=== PATIENT | female | born 2000 | race Caucasian/White ===

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

== ENCOUNTER 2023-09-02 21:49 | Inpatient (IN) ==
[2023-09-02 22:29] LABS: Appearance Urine Clear (Clear); Bilirubin Urine Negative (Negative); Blood Urine Negative (Negative); Color Urine Yellow; Glucose Urine UA Negative (Negative); Ketones Urine Trace (Negative); Leukocyte Esterase Urine Negative (Negative); Nitrite Urine Negative (Negative); Protein Urine Negative (Negative); Specific Gravity Urine 1.022 (1.000-1.030); Urobilinogen Urine Negative (Negative)
[2023-09-02 22:43] LABS: Basophils # (auto) 0.04 K/uL (0.00-0.20); Basophils % (auto) 0.5 %; Eosinophils # (auto) 0.13 K/uL (0.00-0.50); Eosinophils % (auto) 1.6 %; Hematocrit (blood only) 46.6 % (37.0-47.0); Hemoglobin 15.7 g/dl (12.0-16.0); Immature Granulocytes # (auto) 0.03 K/uL (0.01-0.20); Immature Granulocytes % (auto) 0.4 %; Lymphocytes # (auto) 2.48 K/uL (1.20-3.40); Mean Corpuscular Hemoglobin 31.8 pg (25.0-34.0); Mean Corpuscular Hgb Conc 33.7 g/dL (32.0-36.0); Mean Corpuscular Volume 94.3 fL (80.0-100.0); Mean Platelet Volume 10.4 fL (9.4-12.4); Monocytes # (auto) 0.72 K/uL (0.11-0.59); Monocytes % (auto) 8.7 %; Neutrophils # (auto) 4.87 K/uL (1.40-6.50); Neutrophils % (auto) 58.8 %; Platelet Count 215 K/uL (130-400); RDW Coefficient of Variation 12.8 % (11.5-14.5); RDW Standard Deviation 43.8 fL (36.4-46.3); Red Blood Count 4.94 M/uL (4.20-5.40); White Blood Count 8.27 K/ul (4.8-10.8)
[2023-09-02 22:58] LABS: Alanine Aminotransferase 9 U/L (7-52); Albumin Globulin Ratio 1.5 (0.9-2); Albumin Level 4.5 gm/dl (3.4-5.0); Alkaline Phosphatase 56 U/L (34-104); Anion Gap 6 (3-11); Aspartate Aminotransferase 16 U/L (13-39); BUN Creatinine Ratio 14.8 (10-20); Bilirubin,Total 0.4 mg/dl (0.2-1.0); Blood Urea Nitrogen 12 mg/dl (6-23); Calcium 9.7 mg/dl (8.6-10.3); Carbon Dioxide 26 mmol/L (21-32); Chloride 107 mmol/L (98-107); Est GFR (African American) 119.5 ml/min; Est GFR (Non-African American) 103.1 ml/min; Glucose 118 mg/dl (70-99(Fasting)); Potassium 3.7 mmol/L (3.5-5.1); Sodium 139 mmol/L (136-145); Total Protein 7.5 gm/dl (6.0-8.3)
[2023-09-02 23:02] LABS: Pregnancy Test, Urine Negative (Negative)
[2023-09-02 23:08] LABS: Acetaminophen < 3 ug/ml (10-30); Salicylate < 3.0 mg/dl (3.0-30)
[2023-09-02 23:13] LABS: Thyroid Stimulating Hormone 5.259 uIu/ml (0.300-4.500)
[2023-09-02 23:16] LABS: Amphetamines+Metham, Urine Neg (Neg); Barbiturates, Urine Neg (Neg); Benzodiazepine, Urine Neg (Neg); Cocaine, Urine Neg (Neg); Fentanyl, Urine Neg (Neg); MDMA (Ecstacy), Urine Neg (Neg); Marijuana, Urine Neg (Neg); Methadone, Urine Neg (Neg); Opiate, Urine Neg (Neg); Phencyclidine, Urine Neg (Neg)
--- NOTE | 2023-09-02 23:58 | Emergency Department Note ---
Impression & Plan Depression, Suicidal ideation ED Provider Note HISTORY OF PRESENT ILLNESS: Patient is a 23-year-old female presenting with suicidal ideation. States that she been feeling very depressed over the last few weeks. She states that she has been having recurrent thoughts of wanting to end her life. Reports numerous plans, including taking medication and stepping out in front of traffic. She denies any previous suicide attempts. She had an inpatient admission to [facility] in high school. She is not currently on any medications. Reports she has been having issues with her significant other. She denies any homicidal ideation. Denies any auditory visual hallucinations. She denies any physical complaints, such as chest pain or shortness of breath. She does report that she has been having increasing self-harm behavior over the last few weeks, given her worsening depression symptoms. ROS: as above PHYSICAL EXAM: Constitutional: Patient appears in no acute distress. HENT: Head: Normocephalic and atraumatic. Eyes: EOMI, PERRL Mouth/Throat: Mucous membranes moist. Neck: Trachea midline. Neck supple. Musculoskeletal: No edema, tenderness or deformity noted. Skin: Warm and dry. Patient has numerous superficial lacerations to the bilateral extremities extending from the proximal thighs to the knees and then noted to have lacerations to the lateral portion of the bilateral lower extremities. No significant open wounds. Wounds are all scabbed over. Psychiatric: Patient is very withdrawn and makes poor eye contact. Neurological: Alert and keenly responsive. CN II-XII grossly intact, moving all extremities equally and fully. MDM: - Vitals signs showed hypertension and tachycardia. - History obtained via patient. History as above. - Chronic conditions affecting care: anxiety/depression - Differential diagnoses include, but are not limited to: depression; UTI; electrolyte abnormality; intoxication - External medical records reviewed. - Laboratory workup interpreted by myself showed normal WBC; stable electrolytes; elevated TSH; negative ; negative salicylate/acetaminophen/alcohol levels - UA negative for infection - UDS negative - COVID negative - Patient seen in conjunction with behavioral health [facility]. Patient was a voluntary 201 for inpatient psychiatric admission. Referral was sent to [facility] inpatient psychiatric unit [address] [place] [address] and patient was accepted. - Patient admitted to inpatient psychiatric unit [address] [place] [address] for further evaluation and management ASSESSMENT AND PLAN: Diagnosis: depression; suicidal ideation Plan: admit Past Med/Surg History Problem List (Updated 09/03/23 @ 01:14 by Tiffany Cox MD) Suicidal ideation (Acute) Depression (Acute) Migraine (Chronic) Surgical History (System 06/20/21 @ 13:14 by Zara Vargas) No pertinent past surgical history Family History (System 06/20/21 @ 13:14 by Zara Vargas) Father Alcoholism Mother Victim of domestic violence Migraine headache Asthma Factor V Leiden mutation Social History (System 06/20/21 @ 13:14 by Zara Vargas) Smoking Status: Unknown if ever smoked Tobacco Type: Cigarettes Preferred Language: Welsh Current Living Situation: Parent Current Living Situation Comment: 2019: Living with a friend; mom(who has sole custody) and step dad other: dad in [facility] rehab, limited contact Feels Safe at Home: Yes Childhood Exposure to Second-Hand Smoke: No Gender Identity: Female Allergies Allergies Allergy/AdvReac Type Severity Reaction Status Date / Time prochlorperazine Allergy Unknown mother Verified 01/02/23 06:34 [From Compazine] highly allergic..pt wants this listed Home Meds Home Medications Medication Instructions Recorded Confirmed No Known Home Medications 01/02/23 01/02/23 Results & Data (ED) Vital Signs Vital Signs - 24 hr 09/02/23 21:53 Temperature 36.5 C Temperature Source Temporal Artery Scan Pulse Rate 99 H Respiratory Rate 16 Respiratory Effort / Characteristics Non-Labored Spontaneous Respiratory Depth Normal Blood Pressure 141/77 H Blood Pressure Mean 98 Pulse Oximetry 98 Oxygen Delivery Method Room Air Sepsis Recent Fever Within 48 Hours No Sepsis New/Unexplained Change in Mental Status N/A Sepsis Action Taken by Nursing No Action Required Laboratory Data 09/02/23 22:05 09/02/23 22:05 Lab Results 09/02/23 09/02/23 Range/Units 22:00 22:05 WBC 8.27 (4.8-10.8) K/ul RBC 4.94 (4.20-5.40) M/uL Hgb 15.7 (12.0-16.0) g/dl Hct 46.6 (37.0-47.0) % MCV 94.3 (80.0-100.0) fL MCH 31.8 (25.0-34.0) pg MCHC 33.7 (32.0-36.0) g/dL RDW Std Deviation 43.8 (36.4-46.3) fL RDW Coeff of Marco 12.8 (11.5-14.5) % Plt Count 215 (130-400) K/uL MPV 10.4 (9.4-12.4) fL Immature Gran % (Auto) 0.4 % Neut % (Auto) 58.8 % Lymph % (Auto) 30.0 % Morgan % (Auto) 8.7 % Eos % (Auto) 1.6 % Baso % (Auto) 0.5 % Neut # (Auto) 4.87 (1.40-6.50) K/uL Lymph # (Auto) 2.48 (1.20-3.40) K/uL Morgan # (Auto) 0.72 H (0.11-0.59) K/uL Eos # (Auto) 0.13 (0.00-0.50) K/uL Baso # (Auto) 0.04 (0.00-0.20) K/uL Immature Gran # (Auto) 0.03 (0.01-0.20) K/uL Sodium 139 (136-145) mmol/L Potassium 3.7 (3.5-5.1) mmol/L Chloride 107 (98-107) mmol/L Carbon Dioxide 26 (21-32) mmol/L Anion Gap 6 (3-11) BUN 12 (6-23) mg/dl Creatinine 0.81 (0.6-1.2) mg/dl Est Cr Clr Drug Dosing Not Reportable Est GFR ( Amer) 119.5 ml/min Est GFR (Non-Af Amer) 103.1 ml/min BUN/Creatinine Ratio 14.8 (10-20) Glucose 118 H (70-99(Fasting)) mg/dl Calcium 9.7 (8.6-10.3) mg/dl Total Bilirubin 0.4 (0.2-1.0) mg/dl AST 16 (13-39) U/L ALT 9 (7-52) U/L Alkaline Phosphatase 56 (34-104) U/L Total Protein 7.5 (6.0-8.3) gm/dl Albumin 4.5 (3.4-5.0) gm/dl Globulin 3.0 (2.5-4.0) gm/dl Albumin/Globulin Ratio 1.5 (0.9-2) TSH 5.259 H (0.300-4.500) uIu/ml Urine Color Yellow Urine Appearance Clear (Clear) Urine pH 6.0 (4.5-7.5) Ur Specific Roscoe 1.022 (1.000-1.030) Urine Protein Negative (Negative) Urine Glucose (UA) Negative (Negative) Urine Ketones Trace H (Negative) Urine Blood Negative (Negative) Urine Nitrite Negative (Negative) Urine Bilirubin Negative (Negative) Urine Urobilinogen Negative (Negative) Ur Leukocyte Esterase Negative (Negative) Urine Test Negative (Negative) Salicylates < 3.0 L (3.0-30) mg/dl Urine Opiates Screen Neg (Neg) Ur Methadone, Qual Neg (Neg) Urine Fentanyl Screen Neg (Neg) Acetaminophen < 3 L (10-30) ug/ml Urine Barbiturates Neg (Neg) Ur Phencyclidine (PCP) Neg (Neg) U Amphetamin/Meth Scrn Neg (Neg) MDMA (Ecstasy) Screen Neg (Neg) U Benzodiazepines Scrn Neg (Neg) Ur Cocaine Metabolite Neg (Neg) U Marijuana (THC) Screen Neg (Neg) Ethyl Alcohol mg/dL < 10.0 (<10.0) mg/dl SARS-CoV-2, RNA, NAAT NEGATIVE (NEGATIVE) Discharge Plan Visit Data Chief Complaint: Mental Health Evaluation Stated Complaint: SUICIDAL ED Provider: Tiffany Cox Discharge Problem: Depression, Suicidal ideation Patient Disposition: Admitted As Inpatient Forms Stand Alone Forms: [facility], Suicide Prevention Resources Prescriptions Prescriptions: No Action No Known Home Medications Referrals Referrals: PCP,NO [Primary Care Provider] -
[2023-09-03] MEDS ORDERED: MAGNESIUM HYDROXIDE SUSP 30 ML UDC PO PRN (01:53)
[2023-09-03] MEDS ORDERED: ALUMINUM/MAGNESIUM SUSP 30 ML UDC PO PRN (01:53)
[2023-09-03] MEDS ORDERED: hydrOXYzine HCl 25 MG TAB PO PRN (01:53)
[2023-09-03] MEDS ORDERED: BISMUTH SUBSALICYLATE LIQD 236 ML PO PRN (01:53)
[2023-09-03] MEDS ORDERED: ACETAMINOPHEN 325 MG TAB PO PRN (01:53)
[2023-09-03] MEDS ORDERED: SODIUM CHLORIDE 0.65% NA SOLN 45 ML (OCEAN) PRN (01:53)
[2023-09-03 05:01] LABS: T4 Free Thyroxine 0.83 ng/dl (0.61-1.60)
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
[2023-09-03] MEDS: SERTRALINE HCL 50 MG TABLET PO SCH (11:23)
[2023-09-03] MEDS: NICOTINE POLACRILEX 2 MG GUM MT PRN (20:02)
[2023-09-03] MEDS: hydrOXYzine HCl 25 MG TAB PO SCH (21:12)
[2023-09-04] MEDS: NICOTINE POLACRILEX 2 MG GUM MT PRN (09:13)
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
[2023-09-04] MEDS: hydrOXYzine HCl 25 MG TAB PO PRN (13:41)
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
[2023-09-05] MEDS: MIRTAZAPINE TAB 15 MG TAB PO SCH (21:04)
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
[2023-09-06] MEDS: NICOTINE POLACRILEX 2 MG GUM MT PRN (17:49)
[2023-09-06] MEDS: MIRTAZAPINE TAB 15 MG TAB PO SCH (21:03)
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
[2023-09-07] MEDS: PROPRANOLOL HCL 10 MG TAB PO PRN (10:01)
[2023-09-07] MEDS: MAGNESIUM OXIDE 400 MG TAB PO SCH (21:04)
[2023-09-07] MEDS: GABAPENTIN 300 MG CAP PO PRN (21:05)
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
[2023-09-08] MEDS: GABAPENTIN 100 MG CAP PO PRN (17:39)
[2023-09-08] MEDS: MIRTAZAPINE TAB 15 MG TAB PO SCH (21:04)
[2023-09-09 08:00] LABS: Appearance Urine Clear (Clear); Bilirubin Urine Negative (Negative); Blood Urine Negative (Negative); Color Urine Yellow; Glucose Urine UA Negative (Negative); Ketones Urine Negative (Negative); Leukocyte Esterase Urine Negative (Negative); Nitrite Urine Negative (Negative); Protein Urine Negative (Negative); Specific Gravity Urine 1.019 (1.000-1.030); Urobilinogen Urine Negative (Negative); pH Urine 6.5 (4.5-7.5)
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
[2023-09-09] MEDS: FLUCONAZOLE 50 MG TAB PO ONE (12:09)
[2023-09-09] MEDS: busPIRone 5 MG TAB PO SCH (14:33)
[2023-09-09] MEDS: cloNIDine HCL 0.1 MG TAB PO SCH (21:10)
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
[2023-09-11] MEDS: LORazepam 0.5 MG TAB PO PRN (21:04)
[2023-09-12] MEDS: SERTRALINE HCL 50 MG TABLET PO SCH (07:51)
[2023-09-12] MEDS: GABAPENTIN 100 MG CAP PO SCH (12:55)
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
[2023-09-12] MEDS: LORazepam 0.5 MG TAB PO PRN (17:01)
[2023-09-12] MEDS: GABAPENTIN 300 MG CAP PO SCH (21:03)
[2023-09-13] MEDS: LORazepam 0.5 MG TAB PO SCH (12:12)
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
[2023-09-13] MEDS: LORazepam 1 MG TAB PO SCH (21:01)
[2023-09-13] MEDS: PRAZOSIN HCL 1 MG CAP PO SCH (21:02)
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
[2023-09-14] MEDS: clonazePAM 0.5 MG TAB PO SCH (13:41)
[2023-09-14] MEDS: hydrOXYzine HCl 25 MG TAB PO PRN (19:31)
[2023-09-14] MEDS: ARIPiprazole 5 MG TAB PO SCH (21:04)
[2023-09-14] MEDS: clonazePAM 1 MG TAB PO SCH (21:04)
[2023-09-15] MEDS: SERTRALINE HCL 50 MG TABLET PO SCH (08:35)
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
[2023-09-16] MEDS: PRAZOSIN HCL 1 MG CAP PO SCH (21:05)
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
[2023-09-18] MEDS: clonazePAM 0.5 MG TAB PO SCH (08:35)
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
[2023-09-19 07:50] LABS: Chol HDL Ratio 2.8 (0-5)
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
[2023-09-19] MEDS: busPIRone 5 MG TAB PO SCH (13:36)
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
== END 2023-09-20 10:53 | disposition home or self-care (01) | DRG 885 ==
LOC: ED 21:49 → SUATTDRO 09-03 01:17 → 3S 09-03 01:17